=== PATIENT | male | born 1985 | race African-American/Black ===

== ENCOUNTER 2020-04-04 04:56 | Emergency (ER) | payer OTHER ==
[2020-04-04 05:13] VITALS: BMI 38.0
[2020-04-04] MEDS ORDERED: SODIUM CHLORIDE 0.9% 500 ML INFUS.BAG IV ONE (05:28)
[2020-04-04 05:46] LABS: BASO % 0.4 % (0-2.0); EOS % 0.8 % (0-4.5); HEMATOCRIT 43.8 % (35.4-49); LYMPH % 43.5 % (8-40); MCHC 34.3 g/dl (32.0-35.9); MEAN CELL VOLUME 84.4 fl (80-96); MEAN PLT VOLUME 8.2 fl (7.5-11.1); MONO % 14.1 % (3.8-10.2); NEUT % 41.2 % (42.8-82.8); PLATELET COUNT 271 K/MM3 (134-434); RBC 5.19 M/mm3 (4.00-5.60); RDW 12.9 % (11.9-15.9); WHITE BLOOD COUNT 5.7 K/mm3 (4.0-10.0)
[2020-04-04 06:05] LABS: CHLORIDE 102 mmol/L (98-107); POTASSIUM 3.9 mmol/L (3.5-5.1); SODIUM 136 mmol/L (136-145)
[2020-04-04 06:07] LABS: CALCIUM 9.3 mg/dL (8.5-10.1)
[2020-04-04 06:08] LABS: ALBUMIN 4.3 g/dl (3.4-5.0); ANION GAP 7 MMOL/L (8-16); BLOOD UREA NITROGEN 20.2 mg/dL (7-18); CO2 27 mmol/L (21-32); GLUCOSE,RANDOM 127 mg/dL (74-106)
[2020-04-04 06:11] LABS: CREATININE 1.2 mg/dL (0.55-1.3); SGOT/AST 21 U/L (15-37); SGPT/ALT 45 U/L (13-61)
[2020-04-04 06:12] LABS: BILIRUBIN,TOTAL 0.4 mg/dL (0.2-1); TOT PROT 7.8 g/dl (6.4-8.2)
[2020-04-04 06:14] LABS: ALK PHOS 64 U/L (45-117)
[2020-04-04 06:46] VITALS: BP 111/51; PULSE 55; TEMP 98.6
== END 2020-04-04 09:00 | disposition home or self-care (01) ==
LOC: JER 04:56
DX: R00.2 Palpitations (principal)
CPT/HCPCS: 36415; 71045-TC-FY; 80053; 82550; 82553; 83735; 84443; 84484; 85025; 93005; 93010; 93225; 93226; 99284-25